=== PATIENT | female | born 1965 | race Two or more races ===

== ENCOUNTER → 2021-08-10 | Emergency (ER) | payer MEDICAID ==
[~2021-08-10] VITALS: Ht 170.2 cm; Wt 68.0 kg
[~2021-08-10] MED LIST: ONDA4TAB11 PO; ONDANSETRON 4 MG TAB.RAPDIS ONE; ONDANSETRON 4 MG TAB.RAPDIS SL ONE
--- NOTE | 2021-08-10 02:05 | NUR ---
BIBRA FOR NAUSEA X3 DAYS. -VOMITTING. PATIENT ALERT AND ORIENTED X3. AMBULATORY WITH NON LABORED BREATHING PLACED IN BED 3 ON MONITOR AND POX.
--- NOTE | 2021-08-10 03:18 | NUR ---
PATIENT ADVISED TO DRINK WATER, PT ABLE TO TOLERATE PO INTAKE WITHOUT VOMITING. PT STATES SHE FEELS BETTER. Addendum: 08/10/21 at [address] SALGADO WAS MADE AWARE
--- NOTE | 2021-08-10 04:33 | NUR ---
Patient discharged to home in stable condition. Written and verbal after care instructions given. Patient verbalizes understanding of instruction. Patient ambulatory with a steady gait
[2021-08-10 04:34] VITALS: BP 139/62
== END | disposition home or self-care (01) ==
LOC: ER 01:59
DX: R11.0 Nausea (principal); Z79.899 Other long term (current) drug therapy
CPT/HCPCS: 99283; Q0162